=== PATIENT | male | born 1950 | race Caucasian/White ===

== ENCOUNTER → 2024-06-26 | Outpatient (CLI) | payer MEDICARE, BC, SELFPAY ==
[2024-06-26 10:16] LABS: Basophils # (Auto) 0.1 Thou/mm3 (0.0-0.2); Basophils % (Auto) 0 % (0-2.5); Eosinophils # (Auto) 0.2 Thou/mm3 (0.0-0.5); Eosinophils % (Auto) 2 % (0-10); Hematocrit 44.4 % (41.0-53.0); Immature Granulocytes % (Auto) 0 % (0-0); Immature Granulocytes Auto 0.02 Thou/mm3 (0.00-0.00); Lymphocytes # (Auto) 10.9 Thou/mm3 (1.0-4.8); Lymphocytes % (Auto) 69 % (10-50); Mean Corpuscular HGB Conc 33.8 g/dl (31.0-37.0); Mean Corpuscular Hemoglobin 31.5 pg (25.0-35.0); Mean Corpuscular Volume 93 fL (80-100); Monocytes # (Auto) 0.7 Thou/mm3 (0.0-0.8); Monocytes % (Auto) 4 % (0-12); Neutrophils % (Auto) 25 % (37-80); Nucleated Red Blood Cell % 0 /100 WBC (0); Platelet Count 132 Thou/mm3 (140-440); RDW Standard Deviation 46.4 fL (35.1-43.9); Red Blood Count 4.76 Miln/mm3 (4.50-5.90); White Blood Count 15.8 Thou/mm3 (3.8-10.6)
[2024-06-26 10:39] LABS: Alanine Aminotransferase 19 U/L (10-49); Albumin, Serum 4.5 gm/dL (3.4-4.8); Alkaline Phosphatase 69 U/L (46-116); Anion Gap 3 (7-16); Aspartate Amino Transferase 18 U/L (0-34); BUN/Creatinine Ratio 21 Ratio (12-20); Bilirubin,Direct 0.3 mg/dL (0.0-0.3); Bilirubin,Total 0.9 mg/dL (0.3-1.2); Blood Urea Nitrogen 21 mg/dL (9-23); Calcium 10.3 mg/dL (8.3-10.6); Carbon Dioxide 30.2 mMol/L (20.0-31.0); Cardiac Risk Estimate 2.9 RATIO (4.0-6.7); Chloride 105 mMol/L (98-107); Cholesterol 160 mg/dL (132-200); Free T4 (Free Thyroxine) 1.22 ng/dL (0.89-1.76); Glucose 146 mg/dL (74-106); HDL Cholesterol 55 mg/dL (40-60); LDL Cholesterol,Calculated 85 mg/dL (0-130); Osmolality,Calculated 281 (275-295); Potassium 5.2 mMol/L (3.4-5.1); Sodium 138 mMol/L (136-145); Thyroid Stimulating Hormone 2.31 uIU/mL (0.55-4.78); Total Protein 6.6 gm/dL (5.7-8.2); Triglycerides 101 mg/dL (30-150); eGFR > 60 See Note
[2024-06-26 10:48] LABS: Glucose Estimated Average 157 mg/dL (80-131); Hemoglobin A1C 7.1 % Hgb (4.8-6.0)
[2024-06-26 11:17] LABS: Path Review Blood Smear Sent to Pathologist
== END | disposition home or self-care (01) ==
LOC: COPL 09:42
PROVIDERS: PCP Family Medicine; Referring Provider Internal Medicine Cardiovascular Disease; Visit Provider Internal Medicine Cardiovascular Disease
DX: I10 Essential (primary) hypertension (principal); E78.5 Hyperlipidemia, unspecified; E11.65 Type 2 diabetes mellitus with hyperglycemia; I25.10 Atherosclerotic heart disease of native coronary artery without angina pectoris
CPT/HCPCS: 36415; 80048; 80061; 80076; 83036; 84439; 84443; 85025

== ENCOUNTER → 2024-09-30 | Outpatient (CLI) | payer MEDICARE, BC, SELFPAY ==
--- NOTE | 2024-09-30 12:24 | XR_ITS ---
Examination:Right hip AP, lateral, AP pelvis 3 views Technique: Hip AP lateral, AP pelvis, 3 views Exam date and time:September 30, 2024 1305 hours INDICATIONS: Low back pain with reticular hip pain months FINDINGS: Right hip bipolar hemiarthroplasty with satisfactory alignment. No loosening of the prosthetic components Moderate narrowing left hip joint No hip or pelvic fracture IMPRESSION: Moderate narrowing left hip joint.
--- NOTE | 2024-09-30 12:24 | XR_ITS ---
Examination: Lumbar spine, 5 views Technique: Lumbar spine AP, lateral, coned lateral lower lumbar spine, bilateral obliques 5 views Exam date and time: April 02, 2025 1305 hours INDICATIONS: Back pain radiating to the legs months FINDINGS: Moderate narrowing left hip joint Diffuse moderate to advanced facet arthropathy No lumbar fracture Moderate lumbar spondylosis Advanced degenerative disc disease L1-L2, L2-L3, L5-S1 No spondylolisthesis IMPRESSION: Advanced degenerative disc disease as above, with spinal stenosis
== END | disposition home or self-care (01) ==
LOC: CDIM 12:17
PROVIDERS: PCP Family Medicine; Referring Provider Orthopaedic Surgery; Visit Provider Orthopaedic Surgery
DX: M51.360 Other intervertebral disc degeneration, lumbar region with discogenic back pain only (principal); M48.061 Spinal stenosis, lumbar region without neurogenic claudication; M25.851 Other specified joint disorders, right hip
CPT/HCPCS: 72110; 73502

== ENCOUNTER → 2024-12-23 | Outpatient (CLI) | payer MEDICARE, BC, SELFPAY ==
[2024-12-23 09:25] LABS: Basophils # (Auto) 0.1 Thou/mm3 (0.0-0.2); Basophils % (Auto) 0 % (0-2.5); Eosinophils # (Auto) 0.2 Thou/mm3 (0.0-0.5); Eosinophils % (Auto) 1 % (0-10); Hematocrit 46.1 % (41.0-53.0); Hemoglobin 15.6 g/dL (13.5-16.0); Immature Granulocytes Auto 0.04 Thou/mm3 (0.00-0.00); Lymphocytes # (Auto) 11.5 Thou/mm3 (1.0-4.8); Lymphocytes % (Auto) 73 % (10-50); Mean Corpuscular HGB Conc 33.8 g/dl (31.0-37.0); Mean Corpuscular Hemoglobin 33.5 pg (25.0-35.0); Mean Corpuscular Volume 99 fL (80-100); Monocytes # (Auto) 0.6 Thou/mm3 (0.0-0.8); Monocytes % (Auto) 4 % (0-12); Neutrophils # (Auto) 3.3 Thou/mm3 (1.8-7.7); Neutrophils % (Auto) 21 % (37-80); Nucleated Red Blood Cell # 0.00 Thou/mm3 (0.00-0.00); Nucleated Red Blood Cell % 0 /100 WBC (0); Platelet Count 136 Thou/mm3 (140-440); RDW Standard Deviation 45.1 fL (35.1-43.9); Red Blood Count 4.66 Miln/mm3 (4.50-5.90); White Blood Count 15.6 Thou/mm3 (3.8-10.6)
[2024-12-23 09:43] LABS: Glucose Estimated Average 143 mg/dL (80-131); Hemoglobin A1C 6.6 % Hgb (4.8-6.0)
[2024-12-23 09:46] LABS: Alanine Aminotransferase 14 U/L (10-49); Albumin, Serum 4.5 gm/dL (3.4-4.8); Albumin/Globulin Ratio 2.1 (1.2-2.2); Alkaline Phosphatase 54 U/L (46-116); Anion Gap 9 (7-16); Aspartate Amino Transferase 18 U/L (0-34); BUN/Creatinine Ratio 18 Ratio (12-20); Bilirubin,Total 0.6 mg/dL (0.3-1.2); Blood Urea Nitrogen 20 mg/dL (9-23); Calcium 9.7 mg/dL (8.3-10.6); Calcium (Corrected) 9.7 mg/dL (8.5-10.1); Carbon Dioxide 30.6 mMol/L (20.0-31.0); Chloride 101 mMol/L (98-107); Creatinine (Component) 1.1 mg/dL (0.6-1.3); Globulin 2.1 gm/dL (2.3-3.5); Glucose 142 mg/dL (74-106); Osmolality,Calculated 285 (275-295); Phosphorous 3.5 mg/dL (2.4-5.1); Potassium 4.6 mMol/L (3.4-5.1); Sodium 141 mMol/L (136-145); Total Protein 6.6 gm/dL (5.7-8.2); eGFR > 60 See Note
== END | disposition home or self-care (01) ==
LOC: SCTO 08:08
PROVIDERS: PCP Family Medicine; Referring Provider Internal Medicine Hematology & Oncology; Visit Provider Internal Medicine Hematology & Oncology
DX: D72.829 Elevated white blood cell count, unspecified (principal); E87.5 Hyperkalemia; E11.9 Type 2 diabetes mellitus without complications
CPT/HCPCS: 36415; 80053; 83036; 84100; 85025

== ENCOUNTER 2025-01-26 14:55 | Outpatient (RCR) | payer MEDICARE, BC, SELFPAY ==
--- NOTE | 2025-01-26 15:51 | CTCFLWUP_ITS ---
Patient: JASON NUNEZ : 1950 Page 2 of 4 FOLLOW UP NOTE DATE OF SERVICE: 01/26/2025 NAME: JASON NUNEZ ACCOUNT: [id number] : 1950 AGE: 74 INTERVAL HISTORY: No new complaint. Patient says he follows with his primary care closely. 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 Patient is asymptomatic Bilateral Dupuytren's contractions. Type 2 diabetes. Hypertension REASON FOR TODAY?S VISIT: This is office follow-up visit. Mr. Nunez is here at [facility]. He is clinically doing very well. Denies any new complaints. Denies any cough, chest pain, abdominal pain or leg cramps. Ambulating well without any help. Has good appetite and good energy levels. Denies any fevers or night sweats. Elevated white blood cell count, unspecified(leukocytosis) [ICD10] D72.829 DATE OF DIAGNOSIS: 04/11/2022 STAGE/TNM: Stage 0 CLL TREATMENT HISTORY: Care?Plan Start?Date Cycle Day Intent HISTORY OF PRESENT ILLNESS: Jason Nunez is a 74-year-old ENG speaking male with history of type 2 diabetes and hypertension had CBC drawn recently because of anticipated surgery for Dupuytren's contractions. He was noted to have elevated lymphocyte count. Hematology consultation was requested. 04/11/2022: WBC 18.6, absolute neutrophil count 13.5, hemoglobin 14.2, MCV 95, platelets 259,000. 05/18/2022: WBC 18.0, absolute lymphocyte count 12.9, hemoglobin 14.4, MCV 95, platelets 161,000. 11/20/2022: CT scan of the chest abdomen and pelvis with IV contrast? 01/17/2024: WBC 15.9, ALC 11.4, hemoglobin 14.3, MCV 95, platelets 149,000, hepatitis panel negative. OTHER MEDICAL HISTORY/CONDITIONS: FAMILY HISTORY: SOCIAL HISTORY: MEDICATIONS: 1. atorvastatin - 10 mg 1 tab Daily 2. Centrum Silver - 400-250 mcg 1 tab Daily 3. Fish OiL - 1,000 (120-180) mg 1 Capsule Daily 4. hydroCHLOROthiazide - 12.5 mg 1 tab Daily 5. Jardiance - 25 mg 1 tab Daily 6. Lipitor - 10 mg 1 tab Daily 7. lisinopril - 5 mg 1 tab Daily 8. metFORMIN - 1,000 mg 1 tab Daily Medications Last Reconciled by Jaclyn Lorenz MA on 01/26/2025 ALLERGIES: clopidogrel REVIEW OF SYSTEMS: A complete 14-point review of systems was performed and is negative except as noted in interval history. PHYSICAL EXAMINATION: VITAL SIGNS: Temperature?99, B/P?130/76, Oxygen?Saturation?93% Weight?217?lbs PAIN: 0 - No pain ECOG Performance Status: 0 - Asymptomatic and fully active GENERAL APPEARANCE: Appears well, in no apparent distress, appropriately interactive. HEENT: Normocephalic, no temporal wasting, normal conjunctiva, no scleral icterus, normal hearing, lips without lesions, neck normal range of motion. CARDIOVASCULAR: Not assessed. PULMONARY: Normal respiratory effort, no respiratory distress or use of accessory muscles, speaking in full sentences, no tachypnea. EXTREMITIES: No pedal edema or cyanosis. SKIN: Normal skin appearance. NEUROLOGIC: Alert and oriented x4. PSHYCHIATRIC: Appropriate affect, mood normal, behavior normal, intact thought and speech. LABORATORY DATA: I have personally reviewed and interpreted each of the patient?s relevant lab tests, abnormal findings are below: Date 06/26/24 12/23/24 ??WHITE?BLOOD?COUNT?(Thou/mm3) ? 15.6?H ??RED?BLOOD?COUNT?(Miln/mm3) ? 4.66 ??HEMOGLOBIN?(gm/dl) ? 15.6 ??HEMATOCRIT?(%) ? 46.1 ??PLATELET?COUNT?(Thou/mm3) ? 136?L ??NEUTROPHILS?%,?AUTO?(%) ? 21?L ??LYMPH?%,?AUTO?(%) ? 73?H ??NEUTROPHILS,?AUTO?(Thou/mm3) ? 3.3 ??GLUCOSE,RANDOM?(mg/dL) 146?H 142?H ??BLOOD?UREA?NITROGEN?(mg/dL) 21 20 ??CREATININE?(mg/dL) 1.00 1.10 ??SODIUM?(mmol/L) 138 141 ??POTASSIUM?(mmol/L) 5.2?H 4.6 ??CHLORIDE?(mmol/L) 105 101 ??CrCl?(CandG)?(ml/min) ? 75.20 ??AST/SGOT?(Unit/L) 18 18 ??ALT/SGPT?(Unit/L) 19 14 ??ALKALINE?PHOSPHATASE?(Unit/L) 69 54 ??BILIRUBIN,?TOTAL?(mg/dL) 0.9 0.6 ??PROTEIN?TOTAL?(gm/dl) 6.6 6.6 ??ALBUMIN,?SERUM?(gm/dl) 4.5 4.5 ??GLOBULIN?(gm/dl) ? 2.1?L ??ALBUMIN/GLOBULIN?RATIO ? 2.1 ??CALCIUM,?SERUM?(mg/dL) 10.3 9.7 ??CALCIUM?SERUM?(CORRECTED)?(mg/dL) ? 9.7 ASSESSMENT/PLAN: 1. Mr. Nunez continues to remain asymptomatic without any complaints stage 0 CLL, CD38 negative, deletion 13 q. 14, IGVH mutation positive. 2. CT scan of the chest abdomen and pelvis with IV contrast (11/20/2022) is a negative study. 3. Bilateral Dupuytren's contractions. 4. Type 2 diabetes. 5. Hypertension Patient's cell counts are stable CBC LDH uric acid every 6 months RTC in 9 months to 1 year as per patient's preference Discussed signs and symptoms of CLL and advised to get vaccination completed for COVID and flu ORDERS: Order # Description [id number] CBC with Auto Diff + MD Follow Up 6 Month + Comprehensive Metabolic Panel - 12 [id number] Uric Acid, Serum [id number] Lactate Dehydrogenase (LDH) RETURN TO CLINIC: I reviewed the diagnosis, prognosis, and recommended treatment/procedure options with the patient (and/or their legal transportation services representative), including the potential benefits, risks, side effects and alternative therapies. We also discussed the option of no treatment and the possibility of clinical trial participation, if applicable. All questions were addressed, and they demonstrated understanding. They provided informed consent to proceed with the proposed plan of care. BILLING AND COMPLIANCE: I reviewed external records from providers outside my specialty as summarized above. I spent a total of 50 minutes on this patient?s care on the day of their visit excluding time spent related to any billed procedures. This time includes time spent with the patient as well as time spent documenting in the medical record, reviewing patients records and tests, obtaining history, placing orders, communicating with other healthcare professionals, counseling the patient, family or caregiver, and/or care coordination for the diagnoses above. Electronically Signed by: Michele Ho MD T: 3:49 PM CC: PCP: Erwin Martinez Referring: Erwin Martinez This document was completed utilizing speech recognition software. Grammatical errors, random word insertions, pronoun errors, and incomplete sentences are an occasional consequence of this system due to software limitations, ambient noise, and hardware issues. Any formal questions or concerns about the content, text or information contained within the body of this dictation should be directly addressed to the provider for clarification.
== END 2025-02-10 23:59 | disposition home or self-care (01) ==
LOC: SCTC 14:55
PROVIDERS: PCP Family Medicine; Referring Provider Family Medicine; Visit Provider Internal Medicine Hematology & Oncology
DX: C91.10 Chronic lymphocytic leukemia of B-cell type not having achieved remission (principal); E11.9 Type 2 diabetes mellitus without complications; I10 Essential (primary) hypertension; M72.0 Palmar fascial fibromatosis [Dupuytren]
CPT/HCPCS: 99212; G0463